=== PATIENT | male | born 1945 | race Caucasian/White ===

== ENCOUNTER → 2020-06-21 | Outpatient (CLI) | payer MEDICARE ==
[~2020-06-21] MED LIST: OMNIPAQUE 350 MG/ML, 100ML BOTTLE ONE
== END | disposition home or self-care (01) ==
LOC: CFH 12:17
PROVIDERS: ATTEND Internal Medicine
DX: C18.7 Malignant neoplasm of sigmoid colon (principal); N28.1 Cyst of kidney, acquired; K57.30 Diverticulosis of large intestine without perforation or abscess without bleeding; M51.37 Other intervertebral disc degeneration, lumbosacral region; M47.816 Spondylosis without myelopathy or radiculopathy, lumbar region
CPT/HCPCS: 74177; 82565; Q9967

== ENCOUNTER → 2020-07-19 | Outpatient (CLI) | payer MEDICARE | END | disposition home or self-care (01) | LOC: CVU 08:46 | PROVIDERS: ATTEND Nurse Practitioner Family | DX: I34.8 Other nonrheumatic mitral valve disorders (principal); I65.23 Occlusion and stenosis of bilateral carotid arteries; I63.9 Cerebral infarction, unspecified | CPT/HCPCS: 93306; 93880 ==

== ENCOUNTER → 2021-03-12 | Outpatient (CLI) | payer MEDICARE | END | disposition home or self-care (01) | LOC: LAB 09:35 | PROVIDERS: ATTEND Internal Medicine Rheumatology | DX: Z11.7 Encounter for testing for latent tuberculosis infection (principal); M06.00 Rheumatoid arthritis without rheumatoid factor, unspecified site; B19.10 Unspecified viral hepatitis B without hepatic coma; Z79.899 Other long term (current) drug therapy | CPT/HCPCS: 36415; 86480; 86803; 87340 ==